=== PATIENT | female | born 1940 | race Caucasian/White ===

== ENCOUNTER 2020-04-11 19:51 | Inpatient (IN) | payer MEDICARE, BC ==
[~2020-04-11] VITALS: Ht 160 cm; Wt 81.9 kg
[2020-04-11] MEDS ORDERED: ACETAMINOPHEN 325 MG TAB PO ONE (20:30)
[2020-04-11 20:50] LABS: HEMATOCRIT 39.4 % (36.0-47.0); HEMOGLOBIN 12.6 g/dl (12.0-15.5); MEAN CORPUSCULAR HEMOGLOBIN 30.5 pg (27.0-33.0); MEAN CORPUSCULAR VOLUME 95.4 fl (80.0-96.0); PLATELET COUNT, AUTOMATED 122 10^3/uL (150-450); RED BLOOD COUNT 4.13 10^6/uL (4.00-5.40); WHITE BLOOD COUNT 15.6 10^3/uL (4.0-10.0)
[2020-04-11 21:09] LABS: BLOOD UREA NITROGEN 16 MG/DL (7-18); CALCIUM LEVEL 9.6 MG/DL (8.8-10.2); CARBON DIOXIDE LEVEL 23 MEQ/L (21-32); CHLORIDE LEVEL 103 MEQ/L (98-107); GLOMERULAR FILTRATION RATE 56.9 (>39); GLUCOSE, FASTING 120 MG/DL (70-100); POTASSIUM SERUM 3.7 MEQ/L (3.5-5.1); SODIUM LEVEL 134 MEQ/L (136-145)
[2020-04-11] MEDS ORDERED: NS 1,000 ML IV SCH (22:15)
[2020-04-11] MEDS ORDERED: CIPROFLOXACIN 400 MG in IV 1 EA IV ONE (22:15)
[2020-04-11] MEDS ORDERED: NS 2,320 ML in IV 1 EA IV ONE (22:30)
[2020-04-11] MEDS ORDERED: PIPERACILLIN/TAZOBACTAM SOD 4.5 GM in D5W MINI-BAG PLUS 50 ML IV ONE (22:30)
[2020-04-11 22:31] LABS: ALBUMIN 3.7 GM/DL (3.2-5.2); ALT/SGPT 25 U/L (12-78); BILIRUBIN,DIRECT 0.3 MG/DL (0.0-0.2); BILIRUBIN,TOTAL 0.7 MG/DL (0.2-1.0); TOTAL PROTEIN 8.4 GM/DL (6.4-8.2)
--- NOTE | 2020-04-11 22:43 | REP ---
Clinical: Fever . Comparison: None . Findings: The mediastinum and cardiac silhouette are stable and within normal limits for portable technique. The lung ramires are clear without acute consolidation, effusion, or pneumothorax. Skeletal structures are intact. Impression: No acute cardiopulmonary process appreciated. Electronically Signed by James Marc MD 04/11/2020 10:35 P
[2020-04-11 22:58] LABS: BASO # 0.1 10^3/uL (0.0-0.2); BASO % 0.7 % (0.0-1.0); LYMPH # 0.9 10^3/uL (1.5-5.0); LYMPH % 5.7 % (24.0-44.0); MONO # 7.9 10^3/uL (0.0-0.8); MONO % 50.2 % (0.0-5.0); NEUTROPHILS # 6.3 10^3/uL (1.5-8.5); NEUTROPHILS % 40.2 % (36.0-66.0)
[2020-04-11 23:01] LABS: INR 1.29; PROTHROMBIN TIME 15.8 SECONDS (11.8-14.0)
[2020-04-11] MEDS ORDERED: ESTR1TAB PO (23:05)
[2020-04-11 23:08] LABS: CK-MB VALUE MASS < 1.0 NG/ML (<3.6); CPK CREATINE PHOSPHOKINASE 77 U/L (26-192); PLATELET ESTIMATE NORMAL (NORMAL); TROPONIN I < 0.02 NG/ML (< 0.10)
--- NOTE | 2020-04-11 23:10 | HPEPDOC ---
[facility] Medical History & Physical Date of Admission Apr 11, 2020 Date of Service: Apr 11, 2020 History and Physical CHIEF COMPLAINT: Fever HISTORY OF PRESENT ILLNESS: Patient is 79 year old female with PMH MDS presents to the ER with concern for fever visiting from [place]. She denies any particular symptoms but is concerned when she was told by her doctor in [place] that her neutrophil count is low. In ER, she was found to have T 102.3, HR 116 and WBC 15.6. She clinically appear to be very comfortable without any distress however. She states that she comes in primarily due to her bloodwork. She denies having any symptoms including any chest pain, SOB, chills, nausea or vomiting. She takes a weekly injection of ne upogen normally. PAST MEDICAL HISTORY: 1. MDS PAST SURGICAL HISTORY: b/l hip surgery hysterectomy Cholecystectomy SOCIAL HISTORY: Social alcohol Denies any tobacco or drug use FAMILY HISTORY: Father- parkinson's disease Mother- COPD ALLERGIES: Please see below. REVIEW OF SYSTEMS: 10 point ROS negative except as above HOME MEDICATIONS: Please see below. PHYSICAL EXAMINATION: General: No acute distress, Alert Eyes: Normal sclera, EOMI, SANDY HENT: Atraumatic Cardiovascular: tachycardia, normal rhythm. Pulmonary: Clear to auscultation b/l, no wheezing GI: Soft, nontender, nondistended Skin: Warm and dry Neuro: CN grossly intact. No focal deficits. Strengths equal b/l. Psych: oriented x 3 LABORATORY DATA: See below. IMAGING: CXR- no acute findings MICROBIOLOGY: Please see below. ASSESSMENT: 1. Suspect neutropenic fever 2/2 MDS - Patient febrile T 102.3, HR 116 and WBC 15.6. - bloodwork from 4 days ago shows low neutrophil count, unsure where she is now. - CBC is done but no differentials, diff added. - Received cipro in ER. Changed to Zosyn. - f/u 2 blood cultures. UA no evidence of infection. - neutropenic precautions. May benefit from neupogen. - Consider heme consultation if does not improve. - COVID and resp panel negative. f/u lactic acid. DVT ppx: Lovenox Code status: Full code. Patient has a DNR outside the hospital but changed her mind. Vital Signs Vital Signs Date Time Temp Pulse Resp B/P (MAP) Pulse Ox O2 Delivery O2 Flow Rate FiO2 04/11/20 21:06 04/11/20 20:36 116 95 04/11/20 19:51 102.3 18 Room Air Laboratory Data Labs 24H Laboratory Tests 2 04/11/20 20:20: Nucleated Red Blood Cells % (auto) 0.1H, Urine Color YELLOW, Urine Appearance HAZY, Urine pH 7.0, Urine Specific St[place] 1.015, Urine Protein NEGATIVE, Urine Glucose (UA) NEGATIVE, Urine Ketones NEGATIVE, Urine Blood NEGATIVE, Urine Nitrite NEGATIVE, Urine Bilirubin NEGATIVE, Urine Urobilinogen 0.2, Urine Leukocyte Esterase NEGATIVE, Urine WBC (Auto) 1, Urine RBC (Auto) 4H, Urine Hyaline Casts (Auto) 5, Urine Bacteria (Auto) NEGATIVE, Urine Squamous Epithelial Cells 2, Urine Sperm (Auto) , Anion Gap 8, Glomerular Filtration Rate 56.9, Calcium Level 9.6, Total Bilirubin 0.7, Direct Bilirubin 0.3H, Aspartate Amino Transf (AST/SGOT) 30, Alanine Aminotransferase (ALT/SGPT) 25, Alkaline Phosphatase 102, Total Protein 8.4H, Albumin 3.7, Albumin/Globulin Ratio 0.8L 04/11/20 22:31: CBC/BMP Laboratory Tests 04/11/20 20:20 Microbiology Microbiology 04/11/20 Blood Culture, Received Pending 04/11/20 Respiratory Virus Panel (PCR) ([facility]) - Final, Complete 04/11/20 Blood Culture, Received Pending Home Medications Scheduled Estradiol (Estradiol) 1 Mg Tablet, 0.5 MG PO DAILY Filgrastim (Neupogen) 480 Mcg/1.6 Ml Vial, 480 MCG SC 1XWK MONDAYS, GIVEN AT [place], [place] [phone] EXT [id number] Allergies Coded Allergies: No Known Allergies (Unverified , 04/11/20) A-FIB/CHADSVASC A-FIB History Current/History of A-Fib/PAF?: No CASTILLO HENAO MD Apr 11, 2020 23:10
[2020-04-11] MEDS ORDERED: NEUP480I2 SC (23:16)
[2020-04-12 00:18] VITALS: BP 133/70
[2020-04-12] MEDS: ENOXAPARIN 40MG/0.4ML SYRINGE (J1650 PER 10MG) SC SCH ×2 (00:41→20:13)
[2020-04-12] MEDS ORDERED: SLF 3 ML SYR IV PRN (01:00)
[2020-04-12 04:00] VITALS: BP 145/67
[2020-04-12 05:07] LABS: HEMATOCRIT 36.3 % (36.0-47.0); HEMOGLOBIN 11.5 g/dl (12.0-15.5); MEAN CORPUSCULAR HEMOGLOBIN 30.9 pg (27.0-33.0); MEAN CORPUSCULAR HGB CONC 31.7 g/dl (32.0-36.5); MEAN CORPUSCULAR VOLUME 97.6 fl (80.0-96.0); PLATELET COUNT, AUTOMATED 123 10^3/uL (150-450); RED BLOOD COUNT 3.72 10^6/uL (4.00-5.40); WHITE BLOOD COUNT 27.3 10^3/uL (4.0-10.0)
[2020-04-12 05:28] LABS: BLOOD UREA NITROGEN 14 MG/DL (7-18); CREATININE FOR GFR 0.95 MG/DL (0.55-1.30); GLUCOSE, FASTING 126 MG/DL (70-100)
[2020-04-12 05:29] LABS: CALCIUM LEVEL 8.8 MG/DL (8.8-10.2); CARBON DIOXIDE LEVEL 26 MEQ/L (21-32); CHLORIDE LEVEL 108 MEQ/L (98-107); GLOMERULAR FILTRATION RATE > 60.0 (>39); POTASSIUM SERUM 3.9 MEQ/L (3.5-5.1); SODIUM LEVEL 140 MEQ/L (136-145)
[2020-04-12] MEDS: SLF 3 ML SYR IV SCH ×3 (06:24→21:07)
[2020-04-12] MEDS: ACETAMINOPHEN TAB 650MG DOSE (2X325MG) PO PRN ×3 (07:51→17:51)
[2020-04-12 08:00] VITALS: BP 154/74
--- NOTE | 2020-04-12 09:05 | ECGEPIP ---
[facility] - ED Test Date: 2020-04-11 Pat Name: WOOD LLANOS Department: Room: [place] [address] Gender: Female Internet Project Manager: michelle : 1940 Requested By: ROSA LAWLER Order Number: [id number] Reading MD: Melany Carty Measurements Intervals [place] Rate: 102 P: 39 UT: 153 QRS: -22 QRSD: 81 T: 29 QT: 346 QTc: 451 Interpretive Statements SINUS TACHYCARDIA POSSIBLE LEFT ATRIAL ENLARGEMENT BORDERLINE LEFT AXIS DEVIATION ABNORMAL RHYTHM ECG prwp No prior Electronically Signed on 04-12-2020 9:05:19 EDT by Melany Carty
[2020-04-12 10:11] LABS: FERRITIN 256 NG/ML (8-252); LDH LACTATE DEHYDROGENASE 309 U/L (84-246)
[2020-04-12 12:00] VITALS: BP 138/68
--- NOTE | 2020-04-12 14:20 | IPNPDOC ---
Text Note Date of Service The patient was seen on 04/12/20. NOTE Ms. Cordova was seen this morning at bedside and reported some fatigue, chills and sweats. She reports having regular bowel movements and urination with no change in appearance or performance of either function. She denies headache, vision changes, chest pain, abdominal pain, N/V/D, dysuria, constipation or diarrhea. She was eating breakfast when I entered and reports a mild loss of appetite. Physical Exam: Vitals: See below - significant for T103 and BP 154/74 General: Sitting in bed eating breakfast in no apparent distress. Oriented X3 HEENT: Normal sclera, EOMI, no conjunctival pallor, cranial nerves II-XII grossly intact CV: RRR with +S1 and S2. No murmurs, rubs, gallops noted Pulmonary: CTA B/L. Equal in both lungs GI: Soft and nontender. No organomegaly noted. Normal bowel sounds in all quadrants Extremities: No peripheral edema noted. No rashes, wounds, cyanosis noted. Neuro: No FND, oriented X3, CNII-XII intact Assessment and Plan: #Fever of unknown origin: -WBC 27.3 (was 15.6 yesterday)- Trend CBC with differentials. Diff on 04/11 showed 40% Neutrophils and 50% Monocytes with 15.6K WBC which indicates a non- neutropenic fever -Peripheral smear shows atypical lymphocytes and monocytosis -Blood cultures pending -Respiratory viral panel w/ covid-19 negative -UA and CXR unremarkable -If leukocytosis continues to persist or worsen will pursue flow cytometry to r/o malignancy due to history of MDS -Continue Acetaminophe 650mg Q4H PRN #Hx of MDS -Pt has hx of MDS and is being followed by Hematology in [place], [place] -Usual Neupogen medication will not be administered at this time due to leukocytosis w/o significant anemia #Thrombocytosis -Pt has mild thrombocytosis likely 2/2 hx of neuprogen administration, although possible reactive or overproduction #DVT prophylaxis -Lovenox 40mg QD SC VS,Fishbone, I+O VS, Fishbone, I+O Laboratory Tests 04/11/20 20:20 04/12/20 04:37 Vital Signs Date Time Temp Pulse Resp B/P (MAP) Pulse Ox O2 Delivery O2 Flow Rate FiO2 04/12/20 08:00 103.0 11 0 154/74 (100) 94 Room Air I&O- Last 24 Hours up to 6 AM 04/12/20 06:00 Intake Total 2670 ml Output Total 1550 ml Balance 1120 ml GME ATTESTATION GME ATTESTATION My faculty preceptor for this patient encounter was physically present during the encounter and was fully available. All aspects of the patient interview, examination, medical decision making process, and medical care plan development were reviewed and approved by the faculty preceptor. The faculty preceptor is aware and concurs with the plan as stated in the body of this note and will attest to such by his/her cosignature. ATTENDING NOTE Patient was seen and examined by me. Agree with the above assessment and plan RODRIGUEZ OLIVEIRA OMS-3 Apr 12, 2020 09:57 MARTA STUART MD Apr 15, 2020 14:06
[2020-04-12 16:00] VITALS: BP 134/63
[2020-04-12 20:00] VITALS: BP 120/58
[2020-04-13] VITALS: BP_SYST 131; BP_SYST 139; BP_DIAS 64; BP_DIAS 75
[2020-04-13 04:00] VITALS: BP 167/78
[2020-04-13] MEDS: ACETAMINOPHEN TAB 650MG DOSE (2X325MG) PO PRN ×6 (04:17→20:27)
[2020-04-13] MEDS: SLF 3 ML SYR IV SCH ×3 (04:56→20:34)
[2020-04-13 05:06] LABS: HEMATOCRIT 32.4 % (36.0-47.0); HEMOGLOBIN 10.4 g/dl (12.0-15.5); MEAN CORPUSCULAR HEMOGLOBIN 31.1 pg (27.0-33.0); MEAN CORPUSCULAR HGB CONC 32.1 g/dl (32.0-36.5); PLATELET COUNT, AUTOMATED 101 10^3/uL (150-450); RED BLOOD COUNT 3.34 10^6/uL (4.00-5.40); WHITE BLOOD COUNT 18.7 10^3/uL (4.0-10.0)
[2020-04-13 05:33] LABS: ALT/SGPT 21 U/L (12-78); BILIRUBIN,TOTAL 0.7 MG/DL (0.2-1.0); BLOOD UREA NITROGEN 10 MG/DL (7-18); CALCIUM LEVEL 8.5 MG/DL (8.8-10.2); CARBON DIOXIDE LEVEL 23 MEQ/L (21-32); CHLORIDE LEVEL 106 MEQ/L (98-107); CREATININE FOR GFR 0.79 MG/DL (0.55-1.30); GLOMERULAR FILTRATION RATE > 60.0 (>39); GLUCOSE, FASTING 114 MG/DL (70-100); POTASSIUM SERUM 3.3 MEQ/L (3.5-5.1); SODIUM LEVEL 137 MEQ/L (136-145); TOTAL PROTEIN 7.2 GM/DL (6.4-8.2)
[2020-04-13 07:41] VITALS: BP 114/58
--- NOTE | 2020-04-13 11:37 | IPNPDOC ---
Text Note Date of Service The patient was seen on 04/13/20. NOTE Ms. Cordova was seen this morning at bedside and reported no overnight change in her condition. She reports having regular bowel movements and urination with no change in appearance or performance of either function. She states that she has felt minimal chills but does continue to sweat heavily. She is eating and sleeping well and is in good spirits. She denies headache, vision changes, chest pain, abdominal pain, N/V/D, dysuria, constipation or diarrhea. Physical Exam: Vitals: See below General: Sitting in bed eating breakfast in no apparent distress. Oriented X3 HEENT: Normal sclera, EOMI, no conjunctival pallor, cranial nerves II-XII grossly intact CV: RRR with +S1 and S2. No murmurs, rubs, gallops noted Pulmonary: slightly coarse breath sounds noted in B/L bases with remainder of exam noted to be nominal GI: Soft and nontender. No organomegaly noted. Normal bowel sounds in all quadrants Extremities: No peripheral edema noted. No rashes, wounds, cyanosis noted. Neuro: No FND, oriented X3, CNII-XII intact Assessment and Plan: #Fever of unknown origin: -WBC 18.7 - (27.3 yesterday) Trend CBC with differentials. Diff on 04/11 showed 40% Neutrophils and 50% Monocytes with 15.6K WBC which indicates a non- neutropenic fever -Will pursue Flow Cytometry per presence of immature granulocytes in diff. with pmhx of MDS and per pathology/hematology recommendations -Consulted Hematology/oncology and greatly appreciate their input -Peripheral smear shows atypical lymphocytes and monocytosis -Blood cultures negative -Respiratory viral panel w/ covid-19 negative -UA and CXR unremarkable -Continue Acetaminophen 650mg Q4H PRN #Hx of MDS -Pt has hx of MDS and is being followed by Hematology in [place], [place] -Usual Neupogen medication will not be administered at this time due to leukocytosis w/o significant anemia #Thrombocytosis -Pt has mild thrombocytosis likely 2/2 hx of neuprogen administration, although possible reactive or overproduction #DVT prophylaxis -Lovenox 40mg QD SC VS,Fishbone, I+O VS, Fishbone, I+O Laboratory Tests 04/13/20 04:44 04/13/20 04:45 Vital Signs Date Time Temp Pulse Resp B/P (MAP) Pulse Ox O2 Delivery O2 Flow Rate FiO2 04/13/20 07:41 98.0 89 18 114/58 (76) 97 Room Air I&O- Last 24 Hours up to 6 AM 04/13/20 06:00 Intake Total 600 ml Output Total 1200 ml Balance -600 ml GME ATTESTATION GME ATTESTATION My faculty preceptor for this patient encounter was physically present during the encounter and was fully available. All aspects of the patient interview, examination, medical decision making process, and medical care plan development were reviewed and approved by the faculty preceptor. The faculty preceptor is aware and concurs with the plan as stated in the body of this note and will attest to such by his/her cosignature. ATTENDING NOTE Patient was seen and examined by me. Agree with the above assessment and plan RODRIGUEZ OLIVEIRA OMS-3 Apr 13, 2020 11:37 MARTA STUART MD Apr 15, 2020 14:09
[2020-04-13 12:00] VITALS: BP 126/60
[2020-04-13 15:48] VITALS: BP 153/76
--- NOTE | 2020-04-13 17:49 | CR.PDOC ---
General Date of Consultation: Apr 13, 2020 Consultation abnormal WBC REASON FOR CONSULTATION/CHIEF COMPLAINT: . HISTORY OF PRESENT ILLNESS: [This is a 79 year old female. She has a history of leukopenia. She has a diagnosis of myelodysplasia. She has ANC of under 500. She has been managed with a GCSF bio-similar weekly. She last took Zarxio 8 days ago. She is now admitted with spiking temperatures. Her white count has risen to a high of 27,300 with an ANC 6300. Hematology has been consulted to comment on her abnormal CBC. ]. ALLERGIES: Please see below. HOME MEDICATIONS: Please see below. PAST MEDICAL HISTORY: 1. [Diverticulitis ]. 2. [ ]. PAST SURGICAL HISTORY: 1. [Cholecystectomy ] 2. [colon resection for diverticulitis ] 3. Hysterectomy 4.Bilateral hip surgery 5. FAMILY HISTORY: Father: Mother: Siblings: Children: Hereditary Diseases: Unexpected deaths due to medical reasons: SOCIAL HISTORY: Marital status and/or living arrangements: Children: Employment: Tobacco use:[denies : IV drug use: Other relevant social factors: REVIEW OF SYSTEMS: CONSTITUTIONAL: recurrent fever ]. HEENT: denies headaches,]. CARDIOVASCULAR: [no chest pain, no palpitations, ]. RESPIRATORY: [no chest pian , no cough , no phlegm ]. GENITOURINARY: [ no dysura ]. MUSCULOSKELETAL: [ no joint pain, no muscle pain ]. GASTROINTESTINAL: [ No abdomen pain, no diarrhea ]. SKIN: [ no rash ]. NEUROLOGICAL: . PSYCHIATRIC: . ENDOCRINE: . HEMATOLOGIC/LYMPHATIC: . ALLERGIC/IMMUNOLOGIC: . PHYSICAL EXAMINATION: VITAL SIGNS: Please see below. GENERAL APPEARANCE: [ awake , alert , cooperative]. HEENT: [ Normal cephalic , facial symmetry ]. RESPIRATORY: [ Bilateral breath sounds present ]. CARDIOVASCULAR: [ Regular rate and rhythm ]. ABDOMEN: [ soft non -tender ]. EXTREMITIES: [ moving upper and lower extremities, ]. NEUROLOGICAL: [oriented to person place and time facial symmetry, grossly normal hearing, ]. PSYCHIATRIC: [ normal mood ]. LABORATORY DATA: Please see below. ASSESSMENT/PLAN: 1. [Leukocytosis. She has a history of MDS. she took a white cell growth factor. This can cause leukocytosis and a left shift. Plan: I agree with getting a flow cytometry if abnormal cells seen in the peripheral smear. ' If Zarxio is the problem we would expect her white cell count to start to fall in a few days and to approach her baseline. I agree with serial CBC , . Vital Signs/I&O Vital Signs Date Time Temp Pulse Resp B/P (MAP) Pulse Ox O2 Delivery O2 Flow Rate FiO2 04/13/20 15:48 97.7 89 18 153/76 (101) 100 Room Air I&O- Last 24 Hours up to 6 AM 04/13/20 06:00 Intake Total 600 ml Output Total 1200 ml Balance -600 ml Laboratory Data Labs 24H Laboratory Tests 2 04/13/20 04:44: Nucleated Red Blood Cells % (auto) 0.0 04/13/20 04:45: Anion Gap 8, Glomerular Filtration Rate > 60.0, Calcium Level 8.5L, Total Bilir ubin 0.7, Aspartate Amino Transf (AST/SGOT) 25, Alanine Aminotransferase (ALT/SGPT) 21, Alkaline Phosphatase 93, Total Protein 7.2, Albumin 3.0L, Albumin/Globulin Ratio 0.7L CBC/BMP Laboratory Tests 04/13/20 04:44 04/13/20 04:45 Microbiology Microbiology 04/11/20 Blood Culture - Preliminary, Resulted No growth after 24 hours . All specim... 04/11/20 Respiratory Virus Panel (PCR) ([facility]) - Final, Complete 04/11/20 Blood Culture - Preliminary, Resulted No growth after 24 hours . All specim... Allergies Coded Allergies: povidone-iodine (Verified Allergy, Mild, Skin irritation with topical betadine, 04/12/20) soap (Verified Allergy, Mild, Skin irritation with topical betadine, ) Home Medications Scheduled Estradiol (Estradiol) 1 Mg Tablet, 0.5 MG PO DAILY, (Reported) Filgrastim (Neupogen) 480 Mcg/1.6 Ml Vial, 480 MCG SC 1XWK, (Reported) MONDA[facility], GIVEN AT [place], [place] [phone] EXT [id number] TEODORO MCCLAIN MD Apr 13, 2020 17:49
[2020-04-13] MEDS: ENOXAPARIN 40MG/0.4ML SYRINGE (J1650 PER 10MG) SC SCH (19:09)
[2020-04-13 20:00] VITALS: BP 148/68
[2020-04-13] MEDS: PANTOPRAZOLE 40MG TAB (PROTONIX) PO SCH (20:27)
[2020-04-14] VITALS: BP 139/64
[2020-04-14] MEDS: ACETAMINOPHEN TAB 650MG DOSE (2X325MG) PO PRN ×4 (00:35→18:25)
[2020-04-14 04:00] VITALS: BP 147/68
[2020-04-14] MEDS: SLF 3 ML SYR IV SCH ×3 (04:19→20:06)
[2020-04-14 05:11] LABS: BASO % 0.3 % (0.0-1.0); EOS % 0.1 % (0.0-3.0); HEMATOCRIT 33.1 % (36.0-47.0); HEMOGLOBIN 10.5 g/dl (12.0-15.5); LYMPH # 1.8 10^3/uL (1.5-5.0); LYMPH % 16.5 % (24.0-44.0); MEAN CORPUSCULAR HEMOGLOBIN 30.5 pg (27.0-33.0); MEAN CORPUSCULAR HGB CONC 31.7 g/dl (32.0-36.5); MEAN CORPUSCULAR VOLUME 96.2 fl (80.0-96.0); MONO # 4.2 10^3/uL (0.0-0.8); MONO % 37.7 % (0.0-5.0); NEUTROPHILS # 4.8 10^3/uL (1.5-8.5); NEUTROPHILS % 43.7 % (36.0-66.0); RED BLOOD COUNT 3.44 10^6/uL (4.00-5.40)
[2020-04-14 05:33] LABS: ALBUMIN 2.9 GM/DL (3.2-5.2); ALT/SGPT 31 U/L (12-78); BILIRUBIN,TOTAL 0.9 MG/DL (0.2-1.0); BLOOD UREA NITROGEN 8 MG/DL (7-18); CALCIUM LEVEL 8.8 MG/DL (8.8-10.2); CARBON DIOXIDE LEVEL 25 MEQ/L (21-32); CHLORIDE LEVEL 106 MEQ/L (98-107); CREATININE FOR GFR 0.69 MG/DL (0.55-1.30); GLOMERULAR FILTRATION RATE > 60.0 (>39); GLUCOSE, FASTING 120 MG/DL (70-100); POTASSIUM SERUM 3.7 MEQ/L (3.5-5.1); SODIUM LEVEL 135 MEQ/L (136-145); TOTAL PROTEIN 7.5 GM/DL (6.4-8.2)
[2020-04-14 05:48] LABS: PLATELET COUNT, AUTOMATED 97 10^3/uL (150-450)
[2020-04-14 08:00] VITALS: BP 132/65
[2020-04-14] MEDS: PANTOPRAZOLE 40MG TAB (PROTONIX) PO SCH ×2 (08:31→20:04)
--- NOTE | 2020-04-14 10:22 | IPNPDOC ---
Text Note Date of Service The patient was seen on 04/14/20. NOTE Ms. Cordova was seen this morning at bedside and continues to report no change in her condition. She does still admit to daily and nightly sweating which has been responsive to acetaminophen. She states her appetite has improved since her admission. She is eating and sleeping well. She has been having regular bowel movements and is urinating regularly without incident. She denies headache, vision changes, chest pain, abdominal pain, N/V/D, dysuria, constipation or diarrhea. Physical Exam: Vitals: See below General: Sitting in bed eating breakfast in no apparent distress. Oriented X3 HEENT: Normal sclera, EOMI, no conjunctival pallor, cranial nerves II-XII grossly intact CV: RRR with +S1 and S2. No murmurs, rubs, gallops noted Pulmonary: CTA B/L with no wheezing, rales, rhonchi GI: Soft and nontender. No organomegaly noted. Normal bowel sounds in all quadrants Extremities: No peripheral edema noted. No rashes, wounds, cyanosis noted. Neuro: No FND, oriented X3, CNII-XII intact Assessment and Plan: #Fever of unknown origin: -WBC 11.0 - (18.7 yesterday) Trending down since 04/12. Trend CBC with differentials. Diff on 04/11 showed 40% Neutrophils and 50% Monocytes with 15.6K WBC which indicates a non-neutropenic fever -Flow Cytometry pending. Ordered yesterday per presence of immature granulocytes in diff. with pmhx of MDS and per pathology/hematology recommendations -SARS-Covid antibodies ordered -Consulted Hematology/oncology and greatly appreciate their input -Peripheral smear shows atypical lymphocytes and monocytosis -Blood cultures negative -Respiratory viral panel w/ covid-19 negative -UA and CXR unremarkable -Continue Acetaminophen 650mg Q4H PRN #Hx of MDS -Pt has hx of MDS and is being followed by Hematology in [place], [place] -Usual Neupogen medication will not be administered at this time due to leukocytosis w/o significant anemia #Thrombocytosis -Pt has mild thrombocytosis likely 2/2 hx of neuprogen administration, although possible reactive or overproduction #DVT prophylaxis -Lovenox 40mg QD SC -Pt refused Lovenox on 04/13 -Start TEDS and SCDs Disposition: Discharge pending interpretation of flow cytometry results with stabilization of patient fevers and WBC count VS,Fishbone, I+O VS, Fishbone, I+O Laboratory Tests 04/14/20 04:49 Vital Signs Date Time Temp Pulse Resp B/P (MAP) Pulse Ox O2 Delivery O2 Flow Rate FiO2 04/14/20 08:00 98.3 84 20 132/65 (87) 95 Room Air I&O- Last 24 Hours up to 6 AM 04/14/20 06:00 Intake Total 1260 ml Output Total 2500 ml Balance -1240 ml GME ATTESTATION GME ATTESTATION My faculty preceptor for this patient encounter was physically present during the encounter and was fully available. All aspects of the patient interview, examination, medical decision making process, and medical care plan development were reviewed and approved by the faculty preceptor. The faculty preceptor is aware and concurs with the plan as stated in the body of this note and will att est to such by his/her cosignature. ATTENDING NOTE Patient was seen and examined by me. Agree with the above assessment and plan RODRIGUEZ OLIVEIRA OMS-3 Apr 14, 2020 10:22 MARTA STUART MD Apr 15, 2020 14:19
[2020-04-14 12:00] VITALS: BP 160/73
[2020-04-14 16:00] VITALS: BP 136/68
--- NOTE | 2020-04-14 18:26 | IPNPDOC ---
Date Seen The patient was seen on 04/14/20. Progress Note SUBJECTIVE: Patient is a [79 ]-year-old lady with [ history of high titer KIKE myelodysplasia. She is having recurrent fevers. Her cultures are negative, ' She had a high WBC after taking a white cell growth factor Zarxio. ] OBJECTIVE PHYSICAL EXAMINATION: VITAL SIGNS: Please see below. GENERAL: awake and alert ] HEENT: [ normal head. EOMI ] CARDIOVASCULAR: [ regular rhythm ]. RESPIRATORY: Bilateral clear lung sounds . ABDOMINAL: [ soft ] EXTREMITIES: NEUROLOGICAL: PSYCHOLOGICAL: [ normal mood ] LABORATORY DATA, IMAGING STUDIES, MICROBIOLOGY: Please see below. Echocardiogram: . DVT prophylaxis ordered?: ASSESSMENT AND PLAN: This is a -year-old [RACE] [GENDER] with . PROBLEMS: 1. : [ Leukocytosis getting better ]. 2. : [ MDS ]. 3. : Collagen vascular disease she was on Plaquenil . DISPOSITION: Check Here Rheumatoid factor , check her sed rate Check complement , Check her KIKE titer Trial of steroids. . VS, I&O, 24H, Fishbone Vital Signs/I&O Vital Signs Date Time Temp Pulse Resp B/P (MAP) Pulse Ox O2 Delivery O2 Flow Rate FiO2 04/14/20 16:00 97.8 82 20 136/68 (90) 97 Room Air I&O- Last 24 Hours up to 6 AM 04/14/20 06:00 Intake Total 1260 ml Output Total 2500 ml Balance -1240 ml Laboratory Data 24H LABS Laboratory Tests 2 04/14/20 04:41: 04/14/20 04:49: Immature Granulocyte % (Auto) 1.7, Neutrophils (%) (Auto) 43.7, Lymphocytes (%) (Auto) 16.5L, Monocytes (%) (Auto) 37.7H, Eosinophils (%) (Auto) 0.1, Basophils (%) (Auto) 0.3, Neutrophils # (Auto) 4.8, Lymphocytes # (Auto) 1.8, Monocytes # (Auto) 4.2H, Eosinophils # (Auto) 0.0, Basophils # (Auto) 0.0, Nucleated Red Blood Cells % (auto) 0.0, Immature Platelet Fraction 11.5H, Anion Gap 4L, Glomerular Filtration Rate > 60.0, Calcium Level 8.8, Total Bilirubin 0.9, Aspartate Amino Transf (AST/SGOT) 33, Alanine Aminotransferase (ALT/SGPT) 31, Alkaline Phosphatase 96, Total Protein 7.5, Albumin 2.9L, Albumin/Globulin Ratio 0.6L CBC/BMP Laboratory Tests 04/14/20 04:49 Microbiology Microbiology 04/11/20 Blood Culture - Preliminary, Resulted No Growth after 48 hours. All Specime... 04/11/20 Respiratory Virus Panel (PCR) ([facility]) - Final, Complete 04/11/20 Blood Culture - Preliminary, Resulted No Growth after 48 hours. All Specime... TEODORO MCCLAIN MD Apr 14, 2020 18:26
[2020-04-14] MEDS: ENOXAPARIN 40MG/0.4ML SYRINGE (J1650 PER 10MG) SC SCH (19:35)
[2020-04-14 19:38] LABS: COMPLEMENT C3 95 MG/DL (90-180); COMPLEMENT C4 18 MG/DL (10-40); RHEUMATOID FACTOR QUANT < 10.0 IU/ML (<15.0)
[2020-04-14 20:00] VITALS: BP 147/68
[2020-04-14] MEDS: predniSONE 10 MG TAB PO SCH (20:04)
[2020-04-15] VITALS: BP 146/63
[2020-04-15 04:00] VITALS: BP 159/82
[2020-04-15 05:35] LABS: BASO % 0.4 % (0.0-1.0); LYMPH # 1.6 10^3/uL (1.5-5.0); LYMPH % 15.6 % (24.0-44.0); MEAN CORPUSCULAR HEMOGLOBIN 30.9 pg (27.0-33.0); MEAN CORPUSCULAR HGB CONC 32.3 g/dl (32.0-36.5); MEAN CORPUSCULAR VOLUME 95.7 fl (80.0-96.0); MONO # 3.4 10^3/uL (0.0-0.8); MONO % 33.9 % (0.0-5.0); NEUTROPHILS # 4.8 10^3/uL (1.5-8.5); NEUTROPHILS % 47.7 % (36.0-66.0); RED BLOOD COUNT 3.24 10^6/uL (4.00-5.40); WHITE BLOOD COUNT 10.1 10^3/uL (4.0-10.0)
[2020-04-15 05:36] LABS: PLATELET COUNT, AUTOMATED 99 10^3/uL (150-450)
[2020-04-15] MEDS: SLF 3 ML SYR IV SCH (05:49)
[2020-04-15 05:56] LABS: ALBUMIN 2.8 GM/DL (3.2-5.2); ALT/SGPT 27 U/L (12-78); BLOOD UREA NITROGEN 8 MG/DL (7-18); CALCIUM LEVEL 8.7 MG/DL (8.8-10.2); CARBON DIOXIDE LEVEL 25 MEQ/L (21-32); CHLORIDE LEVEL 107 MEQ/L (98-107); CREATININE FOR GFR 0.67 MG/DL (0.55-1.30); GLOMERULAR FILTRATION RATE > 60.0 (>39); GLUCOSE, FASTING 125 MG/DL (70-100); POTASSIUM SERUM 3.8 MEQ/L (3.5-5.1); SODIUM LEVEL 137 MEQ/L (136-145); TOTAL PROTEIN 7.2 GM/DL (6.4-8.2)
[2020-04-15] MEDS: predniSONE 10 MG TAB PO SCH (07:59)
[2020-04-15] MEDS: PANTOPRAZOLE 40MG TAB (PROTONIX) PO SCH (07:59)
[2020-04-15 08:00] VITALS: BP 128/80
[2020-04-15] MEDS ORDERED: PRED10TA2 PO ×2 (11:37→13:30)
[2020-04-15] MEDS ORDERED: PANT40TA29 PO ×2 (11:37→13:30)
[2020-04-15 12:00] VITALS: BP 151/69
--- NOTE | 2020-04-15 13:29 | DS.PDOC ---
Discharge Summary General Date of Admission Apr 11, 2020 at 22:27 Date of Discharge 04/15/2020 Discharge Summary PROCEDURES PERFORMED DURING STAY: [None]. ADMITTING DIAGNOSES: 1. Suspect neutropenic fever 2/2 MDS DISCHARGE DIAGNOSES: 1. Leukocytosis likely due to Leukemoid reaction 2/2 [place] stimulating factor treatment vs viral prodrome vs hematological pathology 2. Thrombocytosis COMPLICATIONS/CHIEF COMPLAINT: Neutropenic Fever. HISTORY OF PRESENT ILLNESS: Ms. Cordova is 79 year old female with PMH of MDS who presented to the ER with concern for fevers, chills, and heavy sweating while visiting from [place]. She was especially concerned because she was told by her doctor in [place] that her neutrophil count was low. In the ER, she was found to have T 102.3, HR 116 and WBC 15.6. She clinically appeared to be very comfortable without any distress stating that she comes in primarily due to her bloodwork. She denies having any symptoms including any chest pain, SOB, chills, nausea or vomiting. She takes a weekly injection of neupogen normally. HOSPITAL COURSE: Initial bloodwork indicated that Roxanna had leukocytosis due to unknown cause along with fever which prompted her to receive empiric Zosyn, a CXR, blood cultures, respiratory viral panel with Covid nucleic acid screen, an d a U/A. All of the initial labwork was negative for infection with the exception of the leukocytosis. Given her history of MDS along with a high level of immature granulocytes a blood smear was performed which revealed atypical lymphocytes and monocytosis. To further r/o hematological cause of her presentation a blood sample was sent for flow cytometry. Hematology/oncology was consulted and ran a further battery of tests including RF, KIKE, C3 and C4 levels, and total complement, all of which are negative as of this note. They also started her on a trial of prednisone. To further eliminate covid-19 as a etiology of her symptoms a covid antibody assay was performed which was also negative. Her fevers gradually subsided during her hospital stay and she has been afebrile for 24 hours with a WBC of 10.1 as of discharge. DISCHARGE MEDICATIONS: Please see below. ALLERGIES: Please see below. PHYSICAL EXAMINATION ON DISCHARGE: VITAL SIGNS: Please see below. General: Sitting in bed in no apparent distress. Oriented X3 HEENT: Normal sclera, EOMI, no conjunctival pallor, cranial nerves II-XII grossly intact CV: RRR with +S1 and S2. No murmurs, rubs, gallops noted Pulmonary: CTA B/L with no wheezing, rales, rhonchi GI: Soft and nontender. No organomegaly noted. Normal bowel sounds in all quadrants Extremities: No peripheral edema noted. No rashes, wounds, cyanosis noted. Neuro: No FND, oriented X3, CNII-XII intact LABORATORY DATA: Please see below. IMAGING: CXR (04/11): No acute cardiopulmonary process appreciated. PROGNOSIS: Good ACTIVITY: [As tolerated]. DIET: As tolerated DISCHARGE PLAN: DISCHARGE INSTRUCTIONS: 1. Follow up with hematology/oncology as scheduled 2. Continue protonix and prednisone as directed DISCHARGE CONDITION: [Stable]. TIME SPENT ON DISCHARGE: Greater than 45 minutes. Vital Signs/I&Os Vital Signs Date Time Temp Pulse Resp B/P (MAP) Pulse Ox O2 Delivery O2 Flow Rate FiO2 04/15/20 12:00 98.1 83 18 151/69 (96) 96 Room Air I&O- Last 24 Hours up to 6 AM 04/15/20 06:00 Intake Total 1730 ml Output Total 2225 ml Balance -495 ml Laboratory Data Labs 24H Laboratory Tests 2 04/14/20 19:07: Erythrocyte Sedimentation Rate 107H, Rheumatoid Factor < 10.0, Complement C3 95, Complement C4 18 04/15/20 05:01: Immature Granulocyte % (Auto) 2.4, Neutrophils (%) (Auto) 47.7, Lymphocytes (%) (Auto) 15.6L, Monocytes (%) (Auto) 33.9H, Eosinophils (%) (Auto) 0.0, Basophils (%) (Auto) 0.4, Neutrophils # (Auto) 4.8, Lymphocytes # (Auto) 1.6, Monocytes # (Auto) 3.4H, Eosinophils # (Auto) 0.0, Basophils # (Auto) 0.0, Nucleated Red Blood Cells % (auto) 0.0, Immature Platelet Fraction 11.4H, Anion Gap 5L, Glomerular Filtration Rate > 60.0, Calcium Level 8.7L, Total Bilirubin 1.0, Aspartate Amino Transf (AST/SGOT) 24, Alanine Aminotransferase (ALT/SGPT) 27, Alkaline Phosphatase 84, Total Protein 7.2, Albumin 2.8L, Albumin/Globulin Ratio 0.6L CBC/BMP Laboratory Tests 04/15/20 05:01 Microbiology Microbiology 04/11/20 Blood Culture - Preliminary, Resulted No Growth after 72 hours. All specime... 04/11/20 Respiratory Virus Panel (PCR) ([facility]) - Final, Complete 04/11/20 Blood Culture - Preliminary, Resulted No Growth after 72 hours. All specime... Discharge Medications Scheduled Estradiol (Estradiol) 1 Mg Tablet, 0.5 MG PO DAILY, (Reported) Pantoprazole Sodium (Pantoprazole Sodium) 40 Mg Tablet.dr, 40 MG PO DAILY Prednisone (Prednisone) 10 Mg Tablet, 10 MG PO BID Allergies Coded Allergies: povidone-iodine (Verified Allergy, Mild, Skin irritation with topical betadine, 04/12/20) soap (Verified Allergy, Mild, Skin irritation with topical betadine, 04/12/20) GME ATTESTATION GME ATTESTATION My faculty preceptor for this patient encounter was physically present during the encounter and was fully available. All aspects of the patient interview, examination, medical decision making process, and medical care plan development were reviewed and approved by the faculty preceptor. The faculty preceptor is aware and concurs with the plan as stated in the body of this note and will attest to such by his/her cosignature. ATTENDING NOTE Patient was seen and examined by me. Agree with the above assessment and plan RODRIGUEZ OLIVEIRA OMS-3 Apr 15, 2020 13:29 MARTA STUART MD Apr 15, 2020 14:45
[2020-04-16 18:13] LABS: ANA (HEP2) Negative (.); COMPLEMENT TOTAL (CH50) 52 U/mL (>41)
[2020-04-20] MEDS ORDERED: VITATAB74 PO (11:07)
[2020-04-20] MEDS ORDERED: EQL50TAB2 PO (11:07)
[2020-04-20] MEDS ORDERED: ZARX0.05 IJ (11:07)
[2020-04-20] MEDS ORDERED: MULTCAP PO (11:07)
[2020-04-20] MEDS ORDERED: BIOT1CAP2 PO (11:07)
[2020-04-20] MEDS ORDERED: CALCTAB89 PO (11:07)
[2020-04-20] MEDS ORDERED: PRIL20TA2 PO (11:07)
== END 2020-04-15 13:36 | disposition home or self-care (01) | DRG 816 ==
LOC: M ED 19:51 → M ED INP 22:27 → ENRESERV 23:26 → M PCU 04-12 00:18
PROVIDERS: ADMIT Student in an Organized Health Care Education/Training Program; ATTEND Student in an Organized Health Care Education/Training Program
DX: D72.823 Leukemoid reaction (principal); Z79.899 Other long term (current) drug therapy; M35.9 Systemic involvement of connective tissue, unspecified